=== PATIENT | male | born 1960 | race Caucasian/White ===

== ENCOUNTER → 2017-11-15 | Outpatient (CLI) | payer SELFPAY ==
--- NOTE | 2017-11-15 15:25 | CT ---
CT Calcium Score Clinical information: 57-year-old male for coronary artery disease risk assessment. Comparison: None. ECG Gating: Prospective Scan range: Pulmonary artery bifurcation to diaphragm. Findings: Examination quality: Good. Limitation: None. Total calcium score: 375 Total volume score: 335 mm3 Percentile: 75-90 % Artery scores Left main coronary artery: 0 Left anterior descending artery: 259 Left circumflex artery: 63 Right coronary artery: 53 Other findings: Cardiac chambers: Unremarkable. Cardiac valves/vessels: Significant calcific atherosclerotic plaque within the LAD, circumflex and ri ght main coronary arteries. Thoracic aorta: Unremarkable. Lungs: Unremarkable. Upper abdomen: Gastric band is present. Impression: Total calcium score of 375. Value implies definite moderate plaque as seen on CT images. There is sig nificant narrowing possible with a moderate risk of cardiovascular event within the next 5 years. Reported By:
== END ==
LOC: RAD 13:07
DX: Z13.6 Encounter for screening for cardiovascular disorders (principal)